=== PATIENT | male | born 1965 | race Caucasian/White ===

== ENCOUNTER 2019-12-10 12:17 | Emergency (ER) | payer MEDICAID ==
[~2019-12-10] VITALS: Ht 195.6 cm; Wt 86.0 kg
[2019-12-10] MEDS ORDERED: normal saline 1000ML IV soln IVB ONE (13:15)
[2019-12-10 13:43] LABS: PARTIAL THROMBOPLASTIN TIME 32 SECONDS (22-32)
[2019-12-10 13:52] LABS: BASOPHILS % (AUTO) 0.8 % (0-1); EOSINOPHILS % (AUTO) 0.4 % (0-6); HEMATOCRIT 45.8 % (42.0-52.0); HEMOGLOBIN 14.9 g/dl (14.0-17.9); LYMPHOCYTES % (AUTO) 38.2 % (21-51); MEAN CORPUSCULAR HEMOGLOBIN 28.7 PG (27.0-31.0); MEAN CORPUSCULAR HGB CONC 32.6 g/dL (33.0-36.5); MEAN CORPUSCULAR VOLUME 88.1 FL (78-98); MEAN PLATELET VOLUME 7.2 FL (7.4-10.4); MONOCYTES # (AUTO) 0.4 X10'3 (0-0.9); MONOCYTES % (AUTO) 13.8 % (2-12); NEUTROPHILS # (AUTO) 1.2 X10'3 (1.8-7.7); NEUTROPHILS % (AUTO) 46.8 % (42-75); PLATELET COUNT 259 X10'3 (140-440); WHITE BLOOD COUNT 2.7 X10'3 (4.5-11.0)
[2019-12-10 14:01] LABS: ALANINE AMINOTRANSFERASE 16 U/L (12-78); ALBUMIN 3.9 G/DL (3.4-5.0); ALBUMIN/GLOBULIN RATIO 0.9 (1.1-1.5); ALKALINE PHOSPHATASE 63 IU/L (46-116); ANION GAP 5 (8-16); ASPARTATE AMINO TRANSFERASE 15 U/L (10-37); BLOOD UREA NITROGEN 15 MG/DL (7-18); BUN/CREATININE RATIO 10.9 (5.4-32.0); CALCIUM 9.4 MG/DL (8.5-10.1); CHLORIDE 103 MMOL/L (99-107); CREATININE 1.38 MG/DL (0.60-1.10); GLUCOSE 138 MG/DL (70-104); POTASSIUM 3.9 MMOL/L (3.5-5.1); SODIUM 139 MMOL/L (135-145); TOTAL CARBON DIOXIDE 30.7 MMOL/L (24-32); TOTAL PROTEIN 8.1 G/DL (6.4-8.2); eGFR 54 ML/MIN
[2019-12-10] MEDS ORDERED: acetaminophen 325mg tablet PO ONE (14:05)
[2019-12-10 14:20] LABS: PLATELET ESTIMATE NORMAL; TOTAL CELLS COUNTED 100
--- NOTE | 2019-12-10 14:59 | NUR ---
SON WAS DX WITH COVID ONE WEEK AGO
[2019-12-10] MEDS ORDERED: DOXY100C77 PO (15:19)
[2019-12-10 16:03] VITALS: BP 127/84
== END 2019-12-10 16:06 | disposition home or self-care (01) ==
LOC: ER 12:18
DX: J18.9 Pneumonia, unspecified organism (principal); Z20.828 Contact with and (suspected) exposure to other viral communicable diseases; R79.1 Abnormal coagulation profile; Z79.899 Other long term (current) drug therapy
CPT/HCPCS: 36415; 71045; 80053; 83880; 84484; 85007; 85025; 85379; 85610; 85730; 93005; 96360; 99285; J7030